=== PATIENT | male | born 1955 | race Caucasian/White ===

== ENCOUNTER 2024-07-05 07:09 | Outpatient (CLI) | payer MEDICARE ==
[2024-07-05 07:53] LABS: ALBUMIN 3.5 G/DL (3.4-5.0); ANION GAP 5 (8-16); BLOOD UREA NITROGEN 21 MG/DL (7-18); BUN/CREATININE RATIO 14.3 (10.0-20.0); CALCIUM 8.5 MG/DL (8.5-10.1); CHLORIDE 104 MMOL/L (99-107); CREATININE 1.47 MG/DL (0.60-1.10); GLUCOSE 104 MG/DL (70-104); POTASSIUM 4.5 MMOL/L (3.5-5.1); SODIUM 138 MMOL/L (135-145); TOTAL CARBON DIOXIDE 29.2 MMOL/L (24-32); eGFR 47 ML/MIN
[2024-07-05] MEDS ORDERED: iohexol 350MG/ML 100ml bottle IV ONE (08:17)
[2024-07-05] MEDS ORDERED: iohexol 350 MG/ML 50ML vial IV ONE (08:17)
== END 2024-07-05 23:59 | disposition home or self-care (01) ==
LOC: RAD 07:09
PROVIDERS: ATTEND Internal Medicine Interventional Cardiology
DX: I71.43 Infrarenal abdominal aortic aneurysm, without rupture (principal); N28.1 Cyst of kidney, acquired; I70.203 Unspecified atherosclerosis of native arteries of extremities, bilateral legs; J43.9 Emphysema, unspecified; K57.30 Diverticulosis of large intestine without perforation or abscess without bleeding; K40.90 Unilateral inguinal hernia, without obstruction or gangrene, not specified as recurrent; I70.8 Atherosclerosis of other arteries; I70.293 Other atherosclerosis of native arteries of extremities, bilateral legs; E78.5 Hyperlipidemia, unspecified
CPT/HCPCS: 36415; 75635; 80048; Q9967